=== PATIENT | male | born 1960 | race Caucasian/White ===

== ENCOUNTER 2021-09-16 16:29 | Inpatient (IN) | payer OTHER, SELFPAY ==
[2021-09-16 15:04] VITALS: BP 134/85; PULSE 88; RESP 20; TEMP 36.9; O2SAT 94; BMI 34.2
--- NOTE | 2021-09-16 15:17 | ADMGEN ---
This patient, Rufino Holbrook, was admitted to IMU Room 202- at 1502. Patient/family oriented to hospital policies and general routines including ID bracelet, bed and alarms, visiting hours, pain management, procedures, bathroom and other care routines, personal items, smoking policy, room service/diet, and visiting hours. Information on how to activate the Rapid Response Team has been discussed. Patient/Family are encouraged to report perceived risks to care and to ask questions if they do not understand what they are told or what they should do.
[2021-09-16 15:24] VITALS: BP 134/85; PULSE 88; RESP 20; TEMP 36.9; O2SAT 94
[2021-09-16 17:29] LABS: Troponin I 0.123 ng/mL (0.000-0.034)
[2021-09-16 18:00] VITALS: PULSE 77
--- NOTE | 2021-09-16 18:30 | PM.IMHP ---
H&P: HPI History of Present Illness Date/Time: 09/16/21 18:30 Chief Complaint: Elevated troponin and fever. Narrative: This is a pleasant 60-year-old male with no reported significant medical history who is being directly admitted to the IMU from the emergency department at [facility] in [place] for further evaluation of a fever and an elevated troponin level. He has not been feeling well for couple of days with generalized malaise, body aches, and subjective fever. Ibuprofen has helped his symptoms somewhat. On arrival to the emergency department at the outside hospital, his temperature was 102? F. Pertinent labs include a white blood cell count of 10.6, lactic acid of 1.6, procalcitonin of 12.89, and a troponin of 106 (less than 76 is within normal limits). Chest x-ray was unremarkable. Rapid COVID antigen and influenza A and B tests were negative as well. The patient has yet to produce a urine specimen. He was given 2 g of cefepime and 1 g of vancomycin prior to transfer. He was transferred to this facility given his mild troponin elevation. At the time my evaluation he is in good spirits and feels just fine. He lives alone and is not currently working and he is unaware of any sick contacts. He denies sinus congestion, rhinorrhea, otalgia, odynophagia, cough, nausea, vomiting, diarrhea (1 episode 2 days ago for which he took Pepto-Bismol), and dysuria. He has not had abdominal pain or back pain. No rash or joint swelling although there is a mild erythematous patch on his left ramon which he believes is due to his normal stockings that he was wearing today. He has no other skin findings and denies wounds and bites. He denies chest pain and he has never had exertional chest pain. No shortness of breath, syncope, or near syncope. Review of Systems Review of Systems: Twelve systems were reviewed. He has previously had issues with dysphagia. No recent issues and he denies concerns for aspiration. Except as documented, all other systems were reviewed and are negative. [facility] Past Medical History Medical History (Updated 09/16/21 @ 21:21 by Nichelle Doll PA-C) Dysphagia Surgical History Surgical History (Updated 09/16/21 @ 21:13 by Nichelle G. Gerling, PA-C) History of open reduction and internal fixation (ORIF) procedure Repair of left femur fracture. Family History Family History (Updated 09/16/21 @ 21:14 by Nichelle Doll PA-C) Mother Alzheimer's dementia Sibling Coronary artery disease Mother Diabetes mellitus Social History Social History (Updated 09/16/21 @ 21:15 by Nichelle Doll PA-C) Social History: Surrogate decision maker: Chery Baltazar, sister. Code status: Full code. Smoking status: Former smoker Alcohol intake: former Substance use: never Additional living arrangements comments: The patient lives alone in [place]. Additional occupation/education comments: Not currently employed. Meds Home Medications and Allergies Home Medications Medication Instructions Recorded Confirmed Type aspirin [Adult Aspirin] 81 mg PO DAILY 09/16/21 09/16/21 History [id number]-dpt-[id number]-FA-vit K 1 tablet PO DAILY 09/16/21 09/16/21 History [Adults Multivitamin] omega-3 fatty acids-vitamin E 1 cap PO DAILY 09/16/21 09/16/21 History [Fish Oil] Allergies Allergy/AdvReac Type Severity Reaction Status Date / Time No Known Allergies Allergy Unverified 01/07/19 11:28 Vital Signs Vital Signs - 24 hr 09/16/21 15:04 09/16/21 15:24 09/16/21 18:00 Temperature 98.5 F 98.5 F Pulse Rate 88 88 77 Respiratory Rate 20 20 Blood Pressure 134/85 134/85 Pulse Oximetry 94 94 Exam Narrative: General: Well-developed male sitting up in bed no distress. Weight: 127.8 kg. BMI: 34.3. HEENT: PERRL, EOMI. Sclerae anicteric. Edentulous. Oral mucosa moist. Oropharynx is crowded and poorly visualized. Neck: Supple. No nuchal rigidity. No adenopathy or JVD. Respiratory: Resp
[2021-09-16] MEDS: ENOXAPARIN 60 MG/0.6 ML SYRINGE 45 MG SUB-Q (18:42)
[2021-09-16] MEDS: ENOXAPARIN 80 MG/0.8 ML SYRINGE SUB-Q (18:43)
[2021-09-16 20:00] VITALS: BP 112/74; PULSE 64; PULSE 65; RESP 18; TEMP 35.2; O2SAT 96
[2021-09-16 20:05] VITALS: PULSE 84; RESP 15
[2021-09-16 20:43] LABS: Troponin I 0.091 ng/mL (0.000-0.034)
--- NOTE | 2021-09-16 21:24 | ECG_ITS ---
Measurements Intervals [place]mann Rate: 59 P: -4 CO: 157 QRS: 43 QRSD: 108 T: 59 QT: 432 QTc: 430 Interpretive Statements SINUS BRADYCARDIA INCOMPLETE RIGHT BUNDLE BRANCH BLOCK [90+ ms QRS DURATION, TERMINAL R IN V1/V2, 40+ ms S IN I/aVL/V4/V5/V6] BORDERLINE ECG NO PREVIOUS ECG AVAILABLE FOR COMPARISON Electronically Signed On 09-17-2021 14:02:08 [employer] by Miko Rose M.D.
[2021-09-16 22:00] VITALS: PULSE 61
[2021-09-16 22:26] LABS: Troponin I 0.076 ng/mL (0.000-0.034)
[2021-09-17] VITALS (13 sets, daily range): BP systolic 116–135; BP diastolic 53–79; PULSE 47–84; RESP 14–18; TEMP 35.3–36.7; O2SAT 91–97
[2021-09-17 01:27] LABS: SARS-CoV-2 RNA PCR Negative
[2021-09-17 04:46] LABS: Basophils Percent Auto 0.1 % (0.2-1.2); Hematocrit 39.5 % (42.0-52.0); Hemoglobin 13.5 g/dL (14.0-18.0); Immature Granulocyte Absolute 0.05 K/mm3 (0.00-0.031); Immature Granulocyte Percent A 0.4 % (0-0.5); Lymphocytes Absolute Auto 1.04 K/mm3 (0.9-3.2); Lymphocytes Percent Auto 9.3 % (18.3-44.2); Mean Corpuscular HGB Conc 34.2 g/dl (32-36); Mean Corpuscular Hemoglobin 29.9 pg (26-34); Mean Corpuscular Volume 87.4 fl (80-100); Mean Platelet Volume 10.5 fl (7.4-10.4); Monocytes Absolute Auto 0.6 K/mm3 (0.1-0.6); Monocytes Percent Auto 5.3 % (2.6-8.5); Neutrophils Absolute Auto 9.5 K/mm3 (1.3-6.7); Neutrophils Percent Auto 84.9 % (45.5-73.1); Platelet Count Result 150 k/mm3 (150-375); Red Blood Count 4.52 M/mm3 (4.6-6.20); Red Cell Distribution Width 13.5 % (11.5-14.5); White Blood Count 11.2 K/mm3 (4.5-10.0)
[2021-09-17 05:14] LABS: Alanine Aminotransferase 29 U/L (4-50); Alkaline Phosphatase 80 U/L (38-126); Anion Gap 9 mmol/L (8-16); Aspartate Amino Transferase 49 U/L (17-59); Bilirubin,Total 0.7 mg/dL (0.2-1.3); Blood Urea Nitrogen 15 mg/dL (9-20); Calcium 8.2 mg/dL (8.4-10.2); Carbon Dioxide 24 mmol/L (22-30); Chloride 104 mmol/L (98-107); Estimated CRCL calculation 158 ml/min; Estimated Glomerular Filt Rate > 60; Glucose 151 mg/dL (65-110); Magnesium 2.1 mg/dL (1.6-2.3); Potassium 4.1 mmol/L (3.4-5.0); Sodium 137 mmol/L (137-145)
[2021-09-17 05:55] LABS: CRP 13.6 mg/dL (<1.0)
[2021-09-17 07:05] LABS: Add Urine Microscopic? YES; Appearance Urine Clear (Clear); Bacteria Urine Trace /hpf; Bilirubin Urine Negative (Negative); Blood Urine Negative (Negative); Color Urine Yellow (Yellow); Glucose Urine UA Negative (Negative); Ketones Urine Negative (Negative); Leukocyte Esterase Ur Negative LEU/UL (Negative); Mucus Urine Rare /lpf; Nitrate Urine Negative (Negative); Protein Urine 2+ mg/dL (Negative); Specific Grav Ur 1.024 (1.001-1.035); Urobilinogen Urine Negative mg/dL (<2.0); WBC Urine 0-3 /hpf
[2021-09-17] MEDS: ASPIRIN 81 MG ENTERIC TABLET PO (08:23)
[2021-09-17] MEDS: MULTIVITAMINS /C LUTEIN (CENTRUM SILVER) TABLET *BKC 1 TAB PO (08:23)
[2021-09-17] MEDS: OMEGA 3 POLYUNSAT FATTY ACIDS 1 GM CAP PO (08:23)
[2021-09-17] MEDS: ENOXAPARIN 40 MG/0.4 ML SYRINGE SUB-Q (08:23)
--- NOTE | 2021-09-17 10:04 | PM.CNCAR ---
Assessment and Plan Additional Plan 60-year-old man with low level flat troponin elevation occurring in the setting of significant fever with shaking chills for a couple of days. He has no symptoms that are at all suspicious of an acute coronary syndrome from what I can tell in history at this time. I do not know why troponin levels were sampled but they are as described in the chart. At this point this does not merit further workup in my opinion patient has no symptoms that are remotely suspicious for myocardial ischemia. If you have any questions regarding this opinion please let me know. John Vee MD [facility] History of Present Illness History of Present Illness Consult date/time: 09/17/21 10:04 Consult reason: Other (Troponinemia) Reason For Visit: NSTEMI/Elevated Trop Narrative: This is a 60-year-old man I am seeing this morning at the request of the hospitalist for consultation because of troponin levels that are out of normal range. The chart has been reviewed and the patient has been seen. The patient came to the emergency room yesterday in [place] with history of fever chills and shaking rigors for about 48 hours. The symptoms began on Friday of last week. He does not have any history of coughing with some sputum production dysuria or any other obvious infectious symptoms. He did however temperatures each day off over 102? F measured by his oral thermometer at home. Fevers and chills kept occurring for a couple of days he finally went to the emergency room at [place] yesterday. For some reason that I do not have a clear explanation for troponin levels were sampled as part of his evaluation and they are minimally elevated and essentially a flat pattern. His 12 lead ECG is without significant abnormality. In this setting I am asked to see him in consultation. In the last couple of days he describes no symptoms such as chest pain pressure or heaviness. He has no history of heart problems of any kind prior to this. He states he is generally enjoying very good health he does not have any knowledge of hypertension diabetes or dyslipidemia. He feels well this morning and does not have any problems. He received some Tylenol when he presented yesterday he is no longer febrile. Review of Systems Constitutional: Constitutional: Reports as per HPI and Reports no additional constitutional complaints Eyes: Eyes: Reports no additional eye complaints ENT: Reports system reviewed and no additional complaints, except as documented Cardiovascular: Cardiovascular: Reports no additional cardiovascular complaints Respiratory: Respiratory: Reports no additional respiratory complaints Gastrointestinal: Gastrointestinal: Reports no additional gastrointestinal complaints Musculoskeletal: Musculoskeletal: Reports no additional musculoskeletal complaints Integumentary/Breasts: Skin/Breast: Reports system reviewed and no additional complaints, except as docu Neurologic: Reports system reviewed and no additional complaints, except as documented Psychiatric: Psychiatric: Reports no additional psychiatric complaints Endocrine: Endocrine: Reports no additional endocrine complaints Allergic/Immunologic: Allergic/Immunologic: Reports no additional allergic/immunologic complaints [facility] Past Medical History Medical History (Updated 09/16/21 @ 21:21 by Nichelle oDll PA-C) Dysphagia Surgical History Surgical History (Updated 09/16/21 @ 21:13 by Nichelle Doll PA-C) History of open reduction and internal fixation (ORIF) procedure Repair of left femur fracture. Family History Family History (Updated 09/16/21 @ 21:14 by Nichelle Doll PA-C) Mother Alzheimer's dementia Sibling Coronary artery disease Mother Diabetes mellitus Social History Social History (Updated 09/16/21 @ 21:15 by Nichelle Doll PA-C) Social History: Surrogate decision maker: Chery Delaney, sister. Code status: Full code. Smoki
--- NOTE | 2021-09-17 10:14 | PCCCNOTE ---
On 09/17/21, the student, [Janell Cornell ], provided care and completed [facility] documentation on this patient. I have reviewed the student's documentation and agree with the findings.
--- NOTE | 2021-09-17 13:55 | PM.IMPN ---
Progress Note: A&P Assessment and Plan (1) Fever: Code(s): R50.9 - Fever, unspecified <Nadia Aquino PA-C - Last Filed: 09/17/21 14:42> Status: Acute <Nadia Aquino PA-C - Last Filed: 09/17/21 14:42> Assessment and Plan: Febrile up to 102 outside facility. Etiology for fever is unclear. He has been afebrile since admission to this facility CXR from outside hospital with no acute finding COVID and influenza negative Urinalysis without findings of infection No signs/symptoms to indicate GI etiology Patient does not meet criteria for sepsis Mild leukocytosis at 11.2 today. Noted that this is increased compared to labs at outside hospital CRP elevated at 13.6; unclear significance at this time Procalcitonin is elevated at 12.8 Blood culture collected at outside facility is pending. Will be in contact with [facility] for preliminary blood culture results tomorrow Concern for possible transient bacteremia. The patient does have an area of mild erythema on the left anterior ramon that does not appear to be infected. Perhaps however there could have been some local trauma here and could be a source of entry for infection Given his lab findings and completion of culture collection, will resume IV antibiotics. Continue cefepime and vancomycin while awaiting culture results <Nadia Aquino PA-C - Last Filed: 09/17/21 14:42> (2) Elevated troponin: Code(s): R77.8 - Other specified abnormalities of plasma proteins <Nadia Aquino PA-C - Last Filed: 09/17/21 14:42> Status: Acute <Nadia Aquino PA-C - Last Filed: 09/17/21 14:42> Assessment and Plan: Patient transferred from outside hospital for evaluation due to elevated troponins He has been seen in consultation by Cardiology Overall clinical picture not concerning for acute coronary syndrome No further evaluation per Cardiology <Nadia Aquino PA-C - Last Filed: 09/17/21 14:42> Subjective Date/time seen: 09/17/21 13:55 <Nadia Aquino PA-C - Last Filed: 09/17/21 14:42> Interval history: Date of service: 09/17/2021 Rufino Holbrook is a 60-year-old male with no significant prior medical history who is seen in follow-up for fever. He was very angry on my initial encounter. He did not feel like he needed to be in the hospital. He had been seen by Cardiology this morning who informed him that nothing more was required from a cardiology perspective. The patient unfortunately took this to mean that he was being discharged and this was the source of his frustration. He states that he feels much better and does not understand why he needs to be in the hospital. As previously detailed in the H&P, the patient tells me that he presented to outside hospital after 2 days of fevers at home with sweats and states that he was ?breathing really hard.? He had 1 episode of diarrhea that resolved after taking Pepto-Bismol. He currently denies any further fevers or chills. Denies sweats. Denies nausea or vomiting. Denies cough. Denies sore throat. He had a formed bowel movement this morning. He denies any recent injuries or wounds. Denies myalgias or arthralgias. He states he had a rash on the left leg which she believes was due to his wool socks that he wore for 2 days, he thinks these might have been dirty. He denies any drug use, including use of IV drugs. Denies dizziness, lightheadedness, palpitations. His appetite has been good. No dysuria, hematuria, urgency, frequency. <Nadia Aquino PA-C - Last Filed: 09/17/21 14:42> Review of Systems Review of Systems: All systems reviewed & are unremarkable except as noted in HPI and below <Nadia Aquino PA-C - Last Filed: 09/17/21 14:42> Exam Narrative: General: Obese, well-appearing 60 year-old male, walking around the room, comfortable, NARD Neuro: awake, alert and oriented x4, speech clear, no focal n
[2021-09-18] VITALS (9 sets, daily range): BP systolic 104–130; BP diastolic 61–79; PULSE 47–81; RESP 16–20; TEMP 35–37; O2SAT 95–98
[2021-09-18 04:30] LABS: Basophils Percent Auto 0.5 % (0.2-1.2); Eosinophils Absolute Auto 0.2 K/mm3 (0-0.3); Hematocrit 37.9 % (42.0-52.0); Hemoglobin 12.7 g/dL (14.0-18.0); Immature Granulocyte Absolute 0.03 K/mm3 (0.00-0.031); Immature Granulocyte Percent A 0.3 % (0-0.5); Mean Corpuscular HGB Conc 33.5 g/dl (32-36); Mean Corpuscular Hemoglobin 29.5 pg (26-34); Mean Corpuscular Volume 87.9 fl (80-100); Mean Platelet Volume 10.4 fl (7.4-10.4); Monocytes Absolute Auto 0.7 K/mm3 (0.1-0.6); Monocytes Percent Auto 8.2 % (2.6-8.5); Neutrophils Absolute Auto 5.1 K/mm3 (1.3-6.7); Platelet Count Result 162 k/mm3 (150-375); Red Blood Count 4.31 M/mm3 (4.6-6.20); Red Cell Distribution Width 13.7 % (11.5-14.5); White Blood Count 8.7 K/mm3 (4.5-10.0)
[2021-09-18 04:42] LABS: Anion Gap 6 mmol/L (8-16); Blood Urea Nitrogen 25 mg/dL (9-20); Calcium 8.3 mg/dL (8.4-10.2); Carbon Dioxide 25 mmol/L (22-30); Chloride 103 mmol/L (98-107); Estimated CRCL calculation 77 ml/min; Estimated Glomerular Filt Rate 56; Glucose 172 mg/dL (65-110); Potassium 4.4 mmol/L (3.4-5.0); Sodium 134 mmol/L (137-145)
[2021-09-18] MEDS: ASPIRIN 81 MG ENTERIC TABLET PO (09:00)
[2021-09-18] MEDS: MULTIVITAMINS /C LUTEIN (CENTRUM SILVER) TABLET *BKC 1 TAB PO (09:00)
[2021-09-18] MEDS: ENOXAPARIN 40 MG/0.4 ML SYRINGE SUB-Q (09:00)
[2021-09-18] MEDS: OMEGA 3 POLYUNSAT FATTY ACIDS 1 GM CAP PO (09:00)
--- NOTE | 2021-09-18 11:39 | PM.IMPN ---
Progress Note: A&P Assessment and Plan (1) Bacteremia: Code(s): R78.81 - Bacteremia Status: Acute Assessment and Plan: Patient presented to outside hospital with fever (T-max 102.0?) and chills, found to have bacteremia Suspect transient bacteremia from cutaneous source. CXR from outside hospital with no acute finding. COVID and influenza negative Urinalysis without findings of infection No signs/symptoms to indicate GI etiology Patient does not meet criteria for sepsis Mild leukocytosis has resolved, CRP with significant trend down to 3.0 today. Afebrile during admission at this facility Procalcitonin was elevated at 12.8 Received preliminary blood culture results from [facility] today which showed growth of Proteus species in one bottle and Gram-positive rods in one (suspect gram positive mela may be contaminant) Continue cefepime and vancomycin while awaiting final results (2) Elevated troponin: Code(s): R77.8 - Other specified abnormalities of plasma proteins Status: Acute Assessment and Plan: Patient transferred from outside hospital for evaluation due to elevated troponins He has been seen in consultation by Cardiology Overall clinical picture not concerning for acute coronary syndrome No further evaluation per Cardiology Subjective Date/time seen: 09/18/21 11:39 Interval history: Date of service: 09/18/2021 Rufino Holbrook is a 60-year-old male with no significant prior medical history who is seen in follow-up for bacteremia. He is feeling back to his usual state of health today. He offers no complaints. No abdominal pain, nausea, vomiting, fever, chills, dizziness, lightheadedness, weakness, shortness breath, cough, chest pain, palpitations, body aches, difficulty with ambulation. Denies any wounds, sores, cuts on the skin. No recent dental procedures. He is tolerating his diet. Denies dysuria, hematuria, urgency, frequency. No headache. Review of Systems Review of Systems: All systems reviewed & are unremarkable except as noted in HPI and below Exam Narrative: General: Obese, well-appearing 60 year-old male, sitting up in bed, comfortable, NARD Neuro: awake, alert and oriented x4, speech clear, no focal neuro deficits noted HEENMT: normocephalic, atraumatic, EOMI, sclerae anicteric Respiratory: clear to auscultation bilaterally, nonlabored breathing Cardio: regular rate, regular rhythm with S1-S2 Abdomen: nondistended, normoactive bowel sounds, soft, nontender to palpation Extremities: no edema or tenderness to palpation, DP pulses 2+ bilaterally Skin: small patch of faint pinkish erythema on left anterior ramon that is not warm or tender, no purulence or drainage, two superficial excoriations on the right medial ankle, no evidence of septic emboli, no additional wounds on thorough skin examination Psych: Appropriate mood and affect, judgment and insight intact Objective Data Vital Signs Vital Signs: Vital Signs - 24 hr 09/17/21 12:00 09/17/21 14:00 09/17/21 16:00 Temperature 97.7 F 98.1 F Pulse Rate 58 L 57 L 64 Respiratory Rate 14 17 Blood Pressure 129/79 124/73 Pulse Oximetry 91 97 09/17/21 18:00 09/17/21 20:00 09/17/21 22:00 Temperature 96.3 F L Pulse Rate 56 L 59 L 47 L Respiratory Rate 18 Blood Pressure 116/70 Pulse Oximetry 95 09/18/21 00:00 09/18/21 02:00 09/18/21 04:00 Temperature 95.0 F L 95.7 F L Pulse Rate 81 55 L 55 L Respiratory Rate 18 18 Blood Pressure 126/77 127/79 Pulse Oximetry 95 96 09/18/21 06:00 09/18/21 07:59 09/18/21 08:00 Temperature 96.5 F L Pulse Rate 47 L 54 L 52 L Respiratory Rate 20 20 Blood Pressure 130/75 Pulse Oximetry 98 98 09/18/21 10:00 Temperature Pulse Rate 52 L Respiratory Rate Blood Pressure Pulse Oximetry Intake/Output Intake/Output: Intake & Output 09/15/21 09/16/21 09/17/21 09/18/21 23:59 23:59 23:59 23:59 Intake Total 490
--- NOTE | 2021-09-18 13:49 | PC.NURSE ---
This patient, Rufino Holbrook, was transferred to room 330 on 09/18/21 at 1349. Personal belongings sent with patient. Report given to Bhakti. Appropriate documentation sent with patient.
--- NOTE | 2021-09-18 14:00 | PC.NURSE ---
This patient, Rufino Holbrook, was received from IMU room 202 on 09/18/21 at 1400. Patient/family oriented to unit policies and routines
[2021-09-19 05:50] VITALS: BP 143/71; PULSE 53; RESP 18; TEMP 36.5; O2SAT 97
[2021-09-19 06:32] LABS: Hematocrit 40.3 % (42.0-52.0); Hemoglobin 13.3 g/dL (14.0-18.0)
[2021-09-19 06:34] LABS: Anion Gap 7 mmol/L (8-16); Blood Urea Nitrogen 16 mg/dL (9-20); Calcium 8.3 mg/dL (8.4-10.2); Carbon Dioxide 26 mmol/L (22-30); Chloride 104 mmol/L (98-107); Estimated CRCL calculation 137 ml/min; Estimated Glomerular Filt Rate > 60; Glucose 105 mg/dL (65-110); Potassium 4.3 mmol/L (3.4-5.0); Sodium 137 mmol/L (137-145)
[2021-09-19] MEDS: MULTIVITAMINS /C LUTEIN (CENTRUM SILVER) TABLET *BKC 1 TAB PO (08:29)
[2021-09-19] MEDS: OMEGA 3 POLYUNSAT FATTY ACIDS 1 GM CAP PO (08:29)
[2021-09-19] MEDS: ASPIRIN 81 MG ENTERIC TABLET PO (08:29)
[2021-09-19] MEDS: ENOXAPARIN 40 MG/0.4 ML SYRINGE SUB-Q (08:30)
[2021-09-19 14:00] VITALS: BP 136/60; PULSE 101; RESP 20; TEMP 36.6; O2SAT 96
--- NOTE | 2021-09-19 15:48 | PM.IMPN ---
Progress Note: A&P Assessment and Plan (1) Bacteremia: Code(s): R78.81 - Bacteremia Status: Acute Assessment and Plan: Patient presented to outside hospital with fever (T-max 102.0?) and chills, found to have bacteremia Suspect transient bacteremia from cutaneous source. CXR from outside hospital with no acute finding. COVID and influenza negative Urinalysis without findings of infection No signs/symptoms to indicate GI etiology Patient does not meet criteria for sepsis Mild leukocytosis has resolved, CRP with significant downward trend to 3.0. Afebrile during admission at this facility Procalcitonin was elevated at 12.8 Received preliminary blood culture results from [facility] which showed growth of Proteus mirabilis and Gram-positive rods in one bottle (suspect gram positive mela may be contaminant) Continue cefepime and vancomycin while awaiting final results Spoke with event sales representative at [facility] laboratory. Proteus culture had to be rerun and final susceptibility report should be available tomorrow morning around 9:00 a.m. Will call to obtain report and it should be faxed to this facility. Hopefully will be susceptible to oral agent and patient can be discharged on p.o. antibiotics. If requiring IV antibiotics, patient will need to be set up for midline/PICC line (2) Elevated troponin: Code(s): R77.8 - Other specified abnormalities of plasma proteins Status: Acute Assessment and Plan: Patient transferred from outside hospital for evaluation due to elevated troponins He has been seen in consultation by Cardiology Overall clinical picture not concerning for acute coronary syndrome No further evaluation per Cardiology Subjective Date/time seen: 09/19/21 15:48 Interval history: Date of service: 09/19/2021 Rufino Holbrook is a 60-year-old male with no significant prior medical history who is seen in follow-up for bacteremia. He feels well today. Has no complaints. No more fevers. No chills, sweats, nausea vomiting. Tolerating his diet. No shortness breath, cough, chest pain, palpitations. Reports regular bowel movements. No dysuria. He is very eager for discharge home. Review of Systems Review of Systems: All systems reviewed & are unremarkable except as noted in HPI and below Exam Narrative: General: Obese, well-appearing 60 year-old male, sitting up in bed, comfortable, NARD Neuro: awake, alert and oriented x4, speech clear, no focal neuro deficits noted HEENMT: normocephalic, atraumatic, EOMI, sclerae anicteric Respiratory: clear to auscultation bilaterally, nonlabored breathing Cardio: regular rate, regular rhythm with S1-S2 Abdomen: nondistended, normoactive bowel sounds, soft, nontender to palpation Extremities: no edema or tenderness to palpation, DP pulses 2+ bilaterally Skin: small patch of faint pinkish erythema on left anterior ramon that is not warm or tender, no purulence or drainage, two superficial excoriations on the right medial ankle, no evidence of septic emboli, no additional wounds on thorough skin examination Psych: Pleasant and cooperative, judgment and insight intact Objective Data Vital Signs Vital Signs: Vital Signs - 24 hr 09/18/21 21:58 09/19/21 05:50 Temperature 98.0 F 97.7 F Pulse Rate 55 L 53 L Respiratory Rate 18 18 Blood Pressure 104/76 143/71 H Pulse Oximetry 97 97 Intake/Output Intake/Output: Intake & Output 09/16/21 09/17/21 09/18/21 09/19/21 23:59 23:59 23:59 23:59 Intake Total 490 1630 1740 1500 Output Total 550 200 Balance -60 1430 1740 1500 Meds/Results Medications: Active Medications Generic Name Dose Route Start Last Admin Trade Name Freq PRN Reason Stop Dose Admin Acetaminophen 650 mg 09/16/21 16:28 Acetaminophen 325 Mg Tablet PO Q4H PRN Mild Pain (1-3) or Fever Aspirin 81 mg 09/17/21 09:00 09/19/21 08:29 Aspirin 81 Mg Enteric Tablet PO
[2021-09-19 21:51] VITALS: BP 127/71; PULSE 55; RESP 18; TEMP 36.6; O2SAT 94
[2021-09-20 02:23] VITALS: O2SAT 96
[2021-09-20 06:00] VITALS: BP 129/94; PULSE 68; RESP 20; TEMP 36.3; O2SAT 96
[2021-09-20 08:07] LABS: Estimated CRCL calculation 135 ml/min; Estimated Glomerular Filt Rate > 60
[2021-09-20] MEDS: OMEGA 3 POLYUNSAT FATTY ACIDS 1 GM CAP PO (08:25)
[2021-09-20] MEDS: ASPIRIN 81 MG ENTERIC TABLET PO (08:25)
[2021-09-20] MEDS: ENOXAPARIN 40 MG/0.4 ML SYRINGE SUB-Q (08:25)
[2021-09-20 08:36] VITALS: O2SAT 96
--- NOTE | 2021-09-20 10:19 | PM.IMPN ---
Progress Note: A&P Assessment and Plan (1) Bacteremia: Code(s): R78.81 - Bacteremia Status: Acute Assessment and Plan: Patient presented to outside hospital with fever (T-max 102.0?) and chills, found to have bacteremia Suspect transient bacteremia from cutaneous source as evidenced by the skin findings on PE. CXR from outside hospital with no acute finding. COVID and influenza negative Urinalysis without findings of infection No signs/symptoms to indicate GI etiology Patient does not meet criteria for sepsis Mild leukocytosis has resolved, CRP with significant downward trend to 3.0. Afebrile during admission at this facility Procalcitonin was elevated at 12.8 Received preliminary blood culture results from [facility] which showed growth of Proteus mirabilis and Gram-positive rods in one bottle (suspect gram positive mela may be contaminant) Continue cefepime and vancomycin while awaiting final results Spoke with Jose in Microbiology at [facility] laboratory at 1002 this AM. Proteus culture re-run for the second time overnight once again failed as the KYLE count did not match what was reported out. Therefore, he stated it had to be performed manually and it is in the process currently. There will not be a final susceptibility report until tomorrow morning around 9:00 a.m. Will call to obtain report and it should be faxed to this facility. Hopefully will be susceptible to oral agent and patient can be discharged on p.o. antibiotics. If requiring IV antibiotics, patient will need to be set up for midline/PICC line. This has been explained to pt. in length and he verbalizes understanding of plan, the reason why he is still waiting and the necessity for knowing the correct medication to discharge him on. (2) Elevated troponin: Code(s): R77.8 - Other specified abnormalities of plasma proteins Status: Acute Assessment and Plan: Patient transferred from outside hospital for evaluation due to elevated troponins He has been seen in consultation by Cardiology Overall clinical picture not concerning for acute coronary syndrome No further evaluation per Cardiology Time Spent With Patient Time with patient: 15 - 25 minutes Subjective Date/time seen: 09/20/21 10:19 This pt. was examined at the bedside in interval assessment. He has no complaints, endorses feeling 100% better and he has no pain, dyspnea, N/V/D/Chills/Palpitations or any other symptoms to report. He remains on Vancomycin and Cefepime IVPB for Proteus mirabilis bacteremia as per the blood culture from [facility]. The final susceptibility was supposed to result today as the hospitalist on duty yesterday called and checked with the lab. I, too, called at 1002, spoke with Jose in the lab at [facility] and was told that the KYLE count is not matching what has been reported for the second time and it is currently being done manually. Therefore, we will not have a susceptibility until tomorrow morning. As pt. is currently on two IV abx that are not in po form, he cannot be discharged at this time on either. I have told the patient and although he is disappointed, he understands the need to wait for the susceptibilities so that he may be discharged on the right medication to prevent having to come back to the hospital again. Review of Systems Review of Systems: A full 12 point ROS was completed and is otherwise negative with exception of what is documented in HPI. All systems reviewed & are unremarkable except as noted in HPI and below Exam Narrative: General: Obese, well-appearing 60 year-old male, sitting up in bed, comfortable, NARD Neuro: awake, alert and oriented x4, speech clear, no focal neuro deficits noted HEENMT: normocephalic, atraumatic, EOMI, sclerae anicteric Respiratory: clear to auscultation bilaterally, nonlabored breathing Cardio: regular rate, regular rhythm with S1-S2 Abdomen: nondistend
[2021-09-20] MEDS: MULTIVITAMINS /C LUTEIN (CENTRUM SILVER) TABLET *BKC 1 TAB PO (10:52)
[2021-09-20 14:00] VITALS: BP 145/91; PULSE 91; RESP 20; TEMP 37.2; O2SAT 95
[2021-09-20 22:00] VITALS: BP 139/83; PULSE 65; RESP 16; TEMP 36.7; O2SAT 94
[2021-09-21 06:00] VITALS: BP 144/73; PULSE 66; RESP 16; TEMP 36.8; O2SAT 94
[2021-09-21 06:15] LABS: Basophils Absolute Auto 0.1 K/mm3 (0.0-0.1); Eosinophils Absolute Auto 0.3 K/mm3 (0-0.3); Eosinophils Percent Auto 3.2 % (0-4.4); Hematocrit 41.7 % (42.0-52.0); Hemoglobin 13.8 g/dL (14.0-18.0); Immature Granulocyte Absolute 0.28 K/mm3 (0.00-0.031); Immature Granulocyte Percent A 2.9 % (0-0.5); Lymphocytes Absolute Auto 2.61 K/mm3 (0.9-3.2); Lymphocytes Percent Auto 27.1 % (18.3-44.2); Mean Corpuscular HGB Conc 33.1 g/dl (32-36); Mean Corpuscular Hemoglobin 29.6 pg (26-34); Mean Corpuscular Volume 89.5 fl (80-100); Mean Platelet Volume 10.1 fl (7.4-10.4); Monocytes Absolute Auto 0.6 K/mm3 (0.1-0.6); Monocytes Percent Auto 6.7 % (2.6-8.5); Neutrophils Absolute Auto 5.7 K/mm3 (1.3-6.7); Neutrophils Percent Auto 59.1 % (45.5-73.1); Platelet Count Result 211 k/mm3 (150-375); Red Blood Count 4.66 M/mm3 (4.6-6.20); Red Cell Distribution Width 13.3 % (11.5-14.5); White Blood Count 9.6 K/mm3 (4.5-10.0)
[2021-09-21 06:23] LABS: Alanine Aminotransferase 49 U/L (4-50); Albumin Level 3.9 g/dL (3.5-5.1); Alkaline Phosphatase 67 U/L (38-126); Anion Gap 7 mmol/L (8-16); Aspartate Amino Transferase 50 U/L (17-59); Bilirubin,Total 0.6 mg/dL (0.2-1.3); Blood Urea Nitrogen 20 mg/dL (9-20); Calcium 8.8 mg/dL (8.4-10.2); Carbon Dioxide 27 mmol/L (22-30); Chloride 102 mmol/L (98-107); Estimated CRCL calculation 135 ml/min; Estimated Glomerular Filt Rate > 60; Glucose 109 mg/dL (65-110); Magnesium 2.2 mg/dL (1.6-2.3); Potassium 4.4 mmol/L (3.4-5.0); Sodium 136 mmol/L (137-145)
--- NOTE | 2021-09-21 07:44 | PM.DS ---
DS: Admitting Diagnosis Discharge Date 09/21/2021 Admitting Diagnosis 1) Elevated Troponin 2) Fever DS: Discharge Diagnosis Discharge Diagnosis (1) Bacteremia: Code(s): R78.81 - Bacteremia Status: Acute Assessment and Plan: Patient presented to outside hospital with fever (T-max 102.0?) and chills, found to have bacteremia Suspect transient bacteremia from cutaneous source as evidenced by the skin findings on PE. CXR from outside hospital with no acute finding. COVID and influenza negative Urinalysis without findings of infection No signs/symptoms to indicate GI etiology Patient does not meet criteria for sepsis Mild leukocytosis has resolved, CRP with significant downward trend to 3.0. Afebrile during admission at this facility Procalcitonin was elevated at 12.8 Received preliminary blood culture results from [facility] which showed growth of Proteus mirabilis and Gram-positive rods in one bottle (suspect gram positive mela may be contaminant) Continue cefepime and vancomycin while awaiting final results Spoke with Jose in Microbiology at [facility] laboratory at 1002 this AM. Proteus culture re-run for the second time overnight once again failed as the KYLE count did not match what was reported out. Therefore, he stated it had to be performed manually and it is in the process currently. There will not be a final susceptibility report until tomorrow morning around 9:00 a.m. Will call to obtain report and it should be faxed to this facility. Hopefully will be susceptible to oral agent and patient can be discharged on p.o. antibiotics. If requiring IV antibiotics, patient will need to be set up for midline/PICC line. This has been explained to pt. in length and he verbalizes understanding of plan, the reason why he is still waiting and the necessity for knowing the correct medication to discharge him on. UPDATE: 09/21/2021, I received the C&S from [facility] and the Proteus mirabilis is susceptible to only Bactrim and Levaquin po. Pt. has no allergies to medications and he is feeling well overall, so he will be discharged to home on Levaquin 750 mg po daily for a total of 7 more days. Would recommend pt. take a probiotic with it from OTC. (2) Elevated troponin: Code(s): R77.8 - Other specified abnormalities of plasma proteins Status: Acute Assessment and Plan: Patient transferred from outside hospital for evaluation due to elevated troponins He has been seen in consultation by Cardiology Overall clinical picture not concerning for acute coronary syndrome No further evaluation per Cardiology DS: Summary Hospital Course Reason for hospitalization: Elevated troponins and fever of unknown origin. Hospital Course: This very pleasant 60 year old gentleman with no significant PMH was accepted to our inpatient unit as a direct admit after presenting from outside hospital for further evaluation of fever of 102 and an elevated troponin level. He indicated upon his arrival here that he had not been feeling well for a couple of days with generalized malaise, fatigue, body aches and subjective fever. On arrival here he had a procalcitonin level of 12.89 and an elevated troponin. CXR and remainder of labs were unremarkable. Pt. did have a scabbing area over his left ramon with erythema noted on it. The pt. never had any CP. Cardiology was consulted and they did not believe that pt had ACS, and no further intervention or workup was ordered. He had positive blood cultures at outside facility and pending results of them he was treated with Cefepime and Vancomycin here for 5 days. His blood cultures grew out Proteus mirabilis that was sensitive to only two oral medications as pt. has now become asymptomatic and without complaint. The two medications that had sensitivity were Bactrim and Levaquin. The pt. has been without issue now for two days as we were just waiting on the sensitivity, and is
[2021-09-21] MEDS: MULTIVITAMINS /C LUTEIN (CENTRUM SILVER) TABLET *BKC 1 TAB PO (08:00)
[2021-09-21] MEDS: ASPIRIN 81 MG ENTERIC TABLET PO (08:00)
[2021-09-21] MEDS: OMEGA 3 POLYUNSAT FATTY ACIDS 1 GM CAP PO (08:00)
[2021-09-21] MEDS: ENOXAPARIN 40 MG/0.4 ML SYRINGE SUB-Q (08:00)
== END 2021-09-21 11:40 | disposition home or self-care (01) | DRG 724 ==
LOC: ANHIMU 09-18 12:58 → ANH3MEDSUR 09-18 13:43
PROVIDERS: Physician Assistant; Admitting Provider Family Medicine; PCP Internal Medicine; Visit Provider Nurse Practitioner Adult Health
DX: R78.81 Bacteremia (principal); B96.4 Proteus (mirabilis) (morganii) as the cause of diseases classified elsewhere; S90.511A Abrasion, right ankle, initial encounter; R50.9 Fever, unspecified; R79.89 Other specified abnormal findings of blood chemistry; E66.9 Obesity, unspecified; Z68.33 Body mass index [BMI] 33.0-33.9, adult; D72.829 Elevated white blood cell count, unspecified; Z20.822 Contact with and (suspected) exposure to COVID-19; Z87.891 Personal history of nicotine dependence
CPT/HCPCS: 36415; 80048; 80053; 80202; 81001; 82565; 83735; 84443; 84484; 85014; 85018; 85025; 86140; 93005; 96365; 96366; 96368; 96372; A9270; C9803; G0378; J0692; J1650; J3370; U0003; U0005